=== PATIENT | female | born 1960 | race Caucasian/White ===

== ENCOUNTER 2017-05-05 10:41 | Emergency (ER) | payer OTHER ==
[~2017-05-05] VITALS: Ht 170.1 cm; Wt 104.3 kg
[~2017-05-05 10:41] MED LIST: AZITHROMYCIN D250 MG PO; BACTROBAN CREAM15 GM T; Bactrim Ds 8001 TAB PO; CLARITIN-D 24 H1 TAB PO; CLEOCIN150 MG PO; FISH OIL 10001000 MG PO; FLONASE 0.05% 121 EA NAS; GLIPIZIDE5 MG PO; HYDROCODONE BIT1 T11 PO; LORAZEPAM1 MG PO; MAXZIDE 25 MG-31 TAB PO; MAXZIDE-25 25MG25 MG PO; METFORMIN500 MG PO; OXYCODONE5 M1 PO; PERCOCET 325 MG1 TA5 PO; VASOTEC2.5 MG PO; ZOLOFT25 MG PO
[2017-05-05] MEDS ORDERED: VENLAFAXINE H37.5 M5 PO (10:51)
[2017-05-05] MEDS ORDERED: ASPIRIN81 MG PO (10:51)
[2017-05-05] MEDS ORDERED: TRIAMTERENE AND1 TAB PO (10:51)
[2017-05-05] MEDS ORDERED: ENALAPRIL MALE2.5 MG PO (10:51)
[2017-05-05] MEDS ORDERED: NAPROSYN500 MG PO (10:58)
[2017-05-05] MEDS ORDERED: 'PARAFON FORTE500 M1 PO (10:58)
== END 2017-05-05 12:28 | disposition home or self-care (01) ==
LOC: ED 10:41
DX: S13.9XXA Sprain of joints and ligaments of unspecified parts of neck, initial encounter (principal); S20.212A Contusion of left front wall of thorax, initial encounter; Z88.0 Allergy status to penicillin; Z88.1 Allergy status to other antibiotic agents; V89.2XXA Person injured in unspecified motor-vehicle accident, traffic, initial encounter; Y93.89 Activity, other specified; Y92.413 State road as the place of occurrence of the external cause; Y99.9 Unspecified external cause status